=== PATIENT | female | born 1995 | race Caucasian/White ===

== ENCOUNTER 2017-01-14 11:32 | Emergency (ER) | payer OTHER ==
--- NOTE | 2017-01-14 12:20 | RAD ---
LEFT FOREARM 2 VIEWS: Date: 01/14/17 PROVIDED CLINICAL HISTORY: Forearm pain status post injury. FINDINGS: There are comminuted fractures of the right radial and ulnar diaphyses. There is radial displacement of the distal ulnar fracture. No additional fracture is evident. There is mild apex and volar angul ation of both fractures. IMPRESSION: Radial and ulnar diaphyseal fractures. POS: [facility]
--- NOTE | 2017-01-14 13:50 | RAD ---
SINGLE VIEW OF RIGHT FOREARM: Comparison: 01-14-17 History: Status post reduction. FINDINGS: A single view of the right forearm shows reduction of the previously seen fracture of the mid portio n of the radius and ulna. An overlying fiberglass obscures fine bony and soft tissue detail. IMPRESSION: Mid right radius and ulnar fractures. POS: [facility]
== END 2017-01-14 14:25 | disposition home or self-care (01) ==
LOC: MADERS 11:32
DX: S52.352A Displaced comminuted fracture of shaft of radius, left arm, initial encounter for closed fracture (principal); S52.252A Displaced comminuted fracture of shaft of ulna, left arm, initial encounter for closed fracture; Z79.899 Other long term (current) drug therapy; F32.9 Major depressive disorder, single episode, unspecified; E03.9 Hypothyroidism, unspecified; K21.9 Gastro-esophageal reflux disease without esophagitis; F17.210 Nicotine dependence, cigarettes, uncomplicated; W19.XXXA Unspecified fall, initial encounter